=== PATIENT | male | born 1935 | race Caucasian/White ===

== ENCOUNTER 2018-01-27 12:23 | Inpatient (IN) | payer OTHER, MEDICARE ==
[~2018-01-27] VITALS: Ht 182.9 cm; Wt 106.1 kg
[2018-01-27 13:00] LABS: ABSOLUTE BASOPHIL COUNT 0 /CUMM (0.0-0.2); ABSOLUTE EOSINOPHIL COUNT 0.2 /CUMM (0.0-0.7); ABSOLUTE GRANULOCYTE CT 7.6 /CUMM (1.4-6.5); ABSOLUTE LYMPH COUNT 1.4 /CUMM (1.2-3.4); ABSOLUTE MONOCYTE COUNT 0.4 /CUMM (0.10-0.60); BASOPHIL % 0.2 % (0.0-2.0); EOSINOPHIL % 1.6 % (0-5); GRANULOCYTE % 79.1 % (42.2-75.2); HEMATOCRIT 42.4 % (42-52); MEAN CORPUSCULAR HGB 29.1 PG (27.0-31.0); MEAN CORPUSCULAR HGB CONC 33.8 G/DL (33.0-37.0); MEAN PLATELET VOLUME 7.6 FL (7.4-10.4); PLATELET COUNT 109 /CUMM (130-400); RBC DISTRIBUTION WIDTH 15.1 % (11.5-14.5); RED BLOOD CELL CT 4.92 /CUMM (4.70-6.10); WHITE BLOOD CELL COUNT 9.6 /CUMM (4.8-10.8)
--- NOTE | 2018-01-27 13:50 | ED GENERAL ADULT ---
See Addendum History of Present Illness General Chief Complaint: Altered Mental Status Stated Complaint: AMS, WEAKNESS Source: family Exam Limitations: clinical condition Vital Signs & Intake/Output Vital Signs & Intake/Output Vital Signs Date Time Temp Pulse Resp B/P B/P Pulse O2 O2 Flow FiO2 Mean Ox Delivery Rate 01/27 1526 97.6 70 15 147/70 98 Room Air Room Air 01/27 1229 98.8 76 15 101/66 94 Room Air Room Air Allergies Coded Allergies: turkey (Severe, GOUT FLARE UP 01/27/18) sulfamethoxazole (From BACTRIM) (Intermediate, HALLUCINATIONS, RASH, AMS ) trimethoprim (From BACTRIM) (Intermediate, HALLUCINATIONS, RASH, AMS 01/27/18) Reconcile Medications Allopurinol 300 MG TABLET 1 TAB PO DAILY GOUT (Reported) Amoxicillin 500 MG CAPSULE 1 CAP PO TID UTI (Reported) Aspirin (Aspirin*) 81 MG TAB.CHEW 1 TAB PO DAILY HEART HEALTH (Reported) Denosumab (Xgeva) 120 MG/1.7 ML (70 MG/ML) VIAL 1 INJ SC Q30D BONE (Reported) Dicyclomine HCl 20 MG TABLET 1 TAB PO TID PRN GI (Reported) Furosemide 40 MG TABLET 1 TAB PO DAILY WATER RETENTION (Reported) Leuprolide Acetate (Lupron Depot) 3.75 MG SYRINGEKIT 1 INJ INJ CANCER ( Reported) Levetiracetam (Keppra) 500 MG TABLET 1 TAB PO BID SEIZURES (Reported) Lidocaine 5 % ADH..PATCH 1 PAT TOP DAILY PRN PAIN (Reported) Meclizine HCl 25 MG TABLET 1 TAB PO TIDPRN PRN VERTIGO (Reported) Psyllium Husk (Metamucil) 0.4 GRAM CAPSULE 2 CAP PO DAILY GI (Reported) Rosuvastatin Calcium (Crestor) 20 MG TABLET 1 TAB PO 1700 CHOLESTEROL ( Reported) Tamsulosin HCl 0.4 MG CAP.ER.24H 1 CAP PO 1700 PROSTATE (Reported) Tramadol HCl 50 MG TABLET 1 TAB PO BIDP PRN PAIN (Reported) Triage Note: PT TO ED WITH COOLING SYSTEM OPERATOR AND DAUGHTER FOR SIGNIFICANT DECREASE IN MENTAL STATUS AND PHYSICAL MOBILITY X 2 WEEKS. RECENTLY SEEN AT [facility] AND DIAGNOSED WITH NSTEMI AND DISCHARGED LAST WEEK. PT NORMALLY IS ASSIST X 1 BUT NOW MAX ASSIST. PT HAS HX OF STAGE 4 PROSTATE CANCER WITH METS. Triage Nurses Notes Reviewed? yes HPI: Pt is an 82 y/o M PMHx prostate CA w/ stage IV mets, coronary bypass presenting with increasing altered mental status and weakness x 1 week. 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 Caregiver first noticed lethargy and weakness on Thursday 01/18. Pt needed assistance in moving from bed and bringing a fork to his mouth when eating. Pt normally is fully ambulatory and feeds himself. Pt had an episode of chest pain this past Friday for which he was admitted at [facility] from 01/20-01/23 adn diagnosed with an NSTEMI. SInce onset, pt has become increasingly weak. Caregiver noticed that it appears more with the right arm and right leg. Pt has been observed falling asleep at the dinner table and in conversation. Caregiver describes decreased intake of food and water as well as decreased urine output. Pt comlains of suprapubic pain. Pt currently denies any cp, SOB, palpitations. Pt's caregiver denies any vomiting, diarrhea, fevers, cough. Pt is currently being treated for a UTI w/ amoxicillin. Past History Travel History Traveled to [place] past 21 day No Medical History Any Pertinent Medical History? see below for history Neurological: seizure, vertigo EENT: NONE Cardiovascular: hyperlipidemia, NSTEMI, BIPASS X 5 ?CHF Respiratory: NONE Renal: benign prost hyperplasia Musculoskeletal: gout Endocrine: TYPE II DM Cancer(s): PROSTATE WITH METS TO BODY Surgical History Surgical History: non-contributory Psychosocial History What is your primary language Rw[place]an Tobacco Use: Quit >30 days ago Family History Hx Contributory? No Review of Systems Review of Systems Constitutional: Reports: see HPI. Respiratory: Denies: see HPI. Cardiovascular: Denies: see HPI. GI: Denies: see HPI. Genitourinary: Reports: see HPI. Musculoskeletal: Reports: see HPI. Neurological/Psychological: Reports: see HPI. Physical Exam Physical Exam General Appearance: alert, awake, lethargic Head: atraumatic, normal appearance Eyes: Bilateral: normal appearance (Pt unable to perform EOM), PERRL. Neck: normal inspection, supple Respiratory: normal breath sounds, chest non-tender, lungs clear Cardiovascular: regular rate/rhythm, NMRG Peripheral Pulses: 2+ radial (R), 2+ radial (L) Gastrointestinal: normal bowel sounds, soft, Tender to palp of RLQ. Psoas sign, obturator sign negative Neurologic/Psych: Stregth 4/5 of LUE, LLE. Strength 3/5 of RUE, LLE on lacer and tier strength, flexion, extension, Finger to nose positive, pronator drift positive on right, Chronic dementia with acute on chronic confusion Core Measures ACS in differential dx? Yes CVA/TIA Diagnosis: Yes Sepsis Present: No Sepsis Focused Exam Completed? No Progress Differential Diagnoses I considered the following diagnoses in my evaluation of the patient: Renal failure, intracranial hemorrhage, TIA, CVA, other metabolic abnormality Plan of Care: Orders Procedure Date/time Status LACTIC ACID 01/27 1535 Active URINALYSIS 01/27 1235 Active TROPONIN LEVEL 01/27 1235 Complete LACTIC ACID 01/27 1235 Complete COMPREHENSIVE METABOLIC PANEL 01/27 1235 Complete CBC WITHOUT DIFFERENTIAL 01/27 1235 Complete EKG 01/27 1235 Active Current Medications Sig/Law Start time Last Medication Dose Stop Time Status Admin Sodium Chloride 1,000 ML ONCE ONE 01/27 1400 AC 01/27 (Normal Saline 0.9%) 01/27 2039 1437 Laboratory Tests 01/27/18 1250: Anion Gap 11, Estimated GFR > 60, BUN/Creatinine Ratio 21.0, Glucose 139 H, Lactic Acid 1.2, Calcium 8.5, Total Bilirubin 2.0 H, AST 28, ALT 21, Alkaline Phosphatase 94, Troponin I 0.14 *H, Total Protein 6.7, Albumin 3.9, Globulin 2.8 , Albumin/Globulin Ratio 1.4, CBC w Diff NO MAN DIFF REQ, RBC 4.92, MCV 86.0, MCH 29.1, MCHC 33.8, RDW 15.1 H, MPV 7.6, Gran % 79.1 H, Lymphocytes % 14.7 L , Monocytes % 4.4, Eosinophils % 1.6, Basophils % 0.2, Absolute Granulocytes 7.6 H, Absolute Lymphocytes 1.4, Absolute Monocytes 0.4, Absolute Eosinophils 0.2, Absolute Basophils 0 Diagnostic Imaging: Discussed w/RAD: CT Scan (cEREBELLAR BLEED). Initial ED EKG: : Atrial flutter with AV block, right bundle branch block, inferior infarct, old. No priors for comparison in our system but daughter states that right bundle branch block was seen at recent admission to [facility]. Comments: Patient was brought in today for lethargy after a recent hospitalization to [facility] for a non-STEMI read laboratory studies were largely unremarkable except for troponin elevation which was reportedly unchanged from his recent [facility] stay, albeit without comparison laboratory studies. ECG shows right bundle branch block which his daughter/POA states was the case at [facility] as well. Unfortunately , his CT scan shows brain metastasis with a cerebellar bleed. His daughter/POA wishes for him to be admitted here for palliative care consultation. After our discussion she made him DNR. Hospitalized as a full admission. Departure Departure Time of Disposition: 1531 Disposition: STILL A PATIENT Condition: Stable Clinical Impression Primary Impression: Cerebellar hemorrhage, nontraumatic Qualifiers: Laterality: unspecified laterality Qualified Code: I61.4 - Nontraumatic intracerebral hemorrhage in cerebellum Referrals: Monse Cantu MD (PCP/Family) Departure Forms: Customer Survey General Discharge Information Admission Note Spoke With: Sajan Bhakta MD Documentation of Exam: Documentation of any treatments & extenuating circumstances including Concerns Regarding Discharge (functional status, medication knowledge or non-compliance, living conditions, etc.) that warrant an admission rather than observation: Patient has terminal cancer with a new finding of cerebellar hemorrhage from brain metastasis. His cancer is stage IV and with this new development I feel that this is a life-threatening process, and in fact will likely cause his . He requires hospitalization for pain management, palliative care consultation, coordination of outpatient hospice means as his wishes are to at home. Patient will likely be here for more than 24 hours, and he is appropriate for discharge from the ED. Recommended hospitalization. Critical Care Note Critical Care Note Critical Care Time: non-applicable
[2018-01-27] MEDS ORDERED: ALLOPURINOL300 M1 PO (14:06)
[2018-01-27] MEDS ORDERED: ASPIRIN81 M4 PO (14:06)
[2018-01-27] MEDS ORDERED: TAMSULOSIN HCL0.4 M1 PO (14:07)
[2018-01-27] MEDS ORDERED: KEPPRA500 M1 PO (14:07)
[2018-01-27] MEDS ORDERED: CRESTOR20 M2 PO (14:07)
[2018-01-27] MEDS ORDERED: TRAMADOL HCL50 M1 PO (14:08)
[2018-01-27] MEDS ORDERED: LIDOCAINE1 EACH TOP (14:08)
[2018-01-27] MEDS ORDERED: FUROSEMIDE40 M1 PO (14:08)
[2018-01-27] MEDS ORDERED: MECLIZINE HCL25 MG PO (14:09)
[2018-01-27] MEDS ORDERED: DICYCLOMINE HCL20 M1 PO (14:09)
[2018-01-27] MEDS ORDERED: METAMUCIL0.4 GM PO (14:09)
[2018-01-27] MEDS ORDERED: AMOXICILLIN500 M2 PO (14:10)
[2018-01-27] MEDS ORDERED: LUPRON DEPOT3.75 M1 INJ (14:11)
[2018-01-27] MEDS ORDERED: XGEVA120 MG/1.1 SC (14:12)
--- NOTE | 2018-01-27 15:21 | CT SCAN REPORT ---
EXAMINATION: CT HEAD WITHOUT CONTRAST CLINICAL INFORMATION: Right hemiparesis. Acute mental status changes. Presumptive diagnosis of CVA. COMPARISON: None TECHNIQUE: Contiguous axial imaging was performed from the skull base to vertex without intravenous administration of contrast. DLP: 629.05 mGy-cm FINDINGS: There is no evidence of territorial infarction. There is a 1.3 x 1.1 cm focus of hyperdensity seen in the right cerebellum with surrounding vasogenic edema consistent with a focal cerebellar hemorrhage. There is a small focus of hyperdensity adjacent to the frontal horn of the right lateral ventricle, possibly another focus of hemorrhage. No abnormal mass effect or midline shift is seen. Grier to white matter differentiation is well preserved. No extra-axial fluid collections are identified. The ventricles and sulci are enlarged, consistent with involutional changes. Mild periventricular deep white matter low-attenuation is seen, consistent with mild ischemic small vessel disease. Atherosclerotic calcifications of the vertebrobasilar arteries is seen. The patient is status post bilateral lens extractions. The osseous structures and soft tissues are normal. The mastoid air cells and visualized portions of the paranasal sinuses are well aerated. IMPRESSION: 1. Findings are consistent with a focal right cerebellar hemorrhage with associated mild vasogenic edema. Additional possible smaller focus of hemorrhage is seen adjacent to the frontal horn of the right lateral ventricle. Would recommend additional evaluation with MRI scan with and without contrast to exclude an underlying mass. 2. No significant mass effect or midline shift is seen. 3. Involutional changes with mild periventricular ischemic small vessel disease. This critical result was discussed with Dr. Anoop Bower 01/27/2018, 3:10 PM and it was ascertained that the content and urgency of this report was understood at the time of direct communication.
--- NOTE | 2018-01-27 17:40 | History & Physical ---
Ras Elisei 01/27/18 1738: General Information and HPI MD Statement: I have seen and personally examined JULISSA OLVERA and documented this H&P. The patient is a 82 year old M who presented with a patient stated chief complaint of altered mental status Source of Information: daughter History of Present Illness: Pt is an 82 y/o M PMHx prostate CA w/ stage IV mets, coronary bypass,gout, hyperlipidemia, vertigo, Type II DM was brought to the ED by his daughter for altered mental status. The daughter is the POA and categorically states that she does not want the patient to know about his current medical condition. The patient was apparently admitted to the [facility] with the complaint of chest pain last . He developed right extremity weakness on Friday. According to the daughter, he was able to walk to the bathroom on Friday. He was not able to use his fork to eat his food but was able to do so yesterday morning. He has been falling asleep in mid sentences and wants to know why he has been feeling that drowsy. The daughter states that the patient has improved dramatically since he was given fluids in the ER. He has apparently been up and talking and watching TV and has been more alert and oriented. Allergies/Medications Allergies: Coded Allergies: turkey (Severe, GOUT FLARE UP 01/27/18) sulfamethoxazole (From BACTRIM) (Intermediate, HALLUCINATIONS, RASH, AMS ) trimethoprim (From BACTRIM) (Intermediate, HALLUCINATIONS, RASH, AMS 01/27/18) Home Med list Allopurinol 300 MG TABLET 1 TAB PO DAILY GOUT (Reported) Amoxicillin 500 MG CAPSULE 1 CAP PO TID UTI (Reported) Aspirin (Aspirin*) 81 MG TAB.CHEW 1 TAB PO DAILY HEART HEALTH (Reported) Denosumab (Xgeva) 120 MG/1.7 ML (70 MG/ML) VIAL 1 INJ SC Q30D BONE (Reported) Dicyclomine HCl 20 MG TABLET 1 TAB PO TID PRN GI (Reported) Furosemide 40 MG TABLET 1 TAB PO DAILY WATER RETENTION (Reported) Leuprolide Acetate (Lupron Depot) 3.75 MG SYRINGEKIT 1 INJ INJ CANCER ( Reported) Levetiracetam (Keppra) 500 MG TABLET 1 TAB PO BID SEIZURES (Reported) Lidocaine 5 % ADH..PATCH 1 PAT TOP DAILY PRN PAIN (Reported) Meclizine HCl 25 MG TABLET 1 TAB PO TIDPRN PRN VERTIGO (Reported) Psyllium Husk (Metamucil) 0.4 GRAM CAPSULE 2 CAP PO DAILY GI (Reported) Rosuvastatin Calcium (Crestor) 20 MG TABLET 1 TAB PO 1700 CHOLESTEROL ( Reported) Tamsulosin HCl 0.4 MG CAP.ER.24H 1 CAP PO 1700 PROSTATE (Reported) Tramadol HCl 50 MG TABLET 1 TAB PO BIDP PRN PAIN (Reported) Past History Travel History Traveled to [place] past 21 day No Medical History Neurological: seizure, vertigo EENT: NONE Cardiovascular: hyperlipidemia, NSTEMI, BIPASS X 5 ?CHF Respiratory: NONE Renal: benign prost hyperplasia Musculoskeletal: gout Endocrine: TYPE II DM Cancer(s): PROSTATE WITH METS TO BODY Surgical History Surgical History: non-contributory Review of Systems Review of Systems Constitutional: Reports: malaise, weakness. Denies: chills, diaphoresis, fever. EENTM: Reports: hearing changes. Denies: blurred vision, double vision. Cardiovascular: Reports: chest pain, peripheral edema. Denies: palpitations. Respiratory: Reports: short of breath. Denies: cough, hemoptysis, sputum production. GI: Denies: abdominal pain, bloating, constipation, diarrhea. Genitourinary: Reports: frequency, hesitation. Musculoskeletal: Reports: back pain, gout, muscle pain. Denies: joint pain. Neurological/Psychological: Denies: anxiety, depressed, dementia, emotional problems. Hematologic/Endocrine: Denies: bleeding, polyuria. Exam & Diagnostic Data Last 24 Hrs of Vital Signs/I&O Vital Signs Date Time Temp Pulse Resp B/P B/P Pulse O2 O2 Flow FiO2 Mean Ox Delivery Rate 01/27 1804 97.4 70 19 132/63 97 Room Air 01/27 1526 97.6 70 15 147/70 98 Room Air Room Air 01/27 1229 98.8 76 15 101/66 94 Room Air Room Air Intake & Output 01/27 1600 01/27 0800 01/27 0000 Intake Total 2000 Output Total 350 Balance 1650 Intake, IV 2000 Output, Urine 350 Physical Exam General Appearance Alert, Oriented X3, Cooperative, No Acute Distress Skin Temp/Moisture Exam: Warm/Dry HEENT Atraumatic, PERRLA, EOMI, pupils bilaterally reactive to light Neck Supple Cardiovascular Regular Rate, Normal S1, Normal S2 Lungs Clear to Auscultation Abdomen Normal Bowel Sounds, Soft, No Tenderness Neurological Strength at 5/5 X4 Ext, Normal Tone, Sensation Intact, Cranial Nerves 3-12 NL Extremities No Edema, Normal Pulses Assessment/Plan Assessment: This is an 82 yo gentleman with PMH of prostate CA w/ stage IV mets, coronary bypass,gout, hyperlipidemia, vertigo, Type II DM was brought to the ED by his daughter with complaint of lethargy and altered mental status. He was found to have a focal right cerebellar bleed with vasogenic edema. On examination, he is alert and orientedx3. His pupils are bilaterally equally reactive to light. Strength in all four extremities 5/5 (even though he had decreased strength in his right extremities on admission), sensation intact, cranial nerves grossly intact. The family wants comfort measures for the patient at this time. They are willing to opt for hospice care if he stabalises Vital signs: Stable Labs: Platelets: 109, HCO3:21, Total bilirubin:2, Troponin: 0.14 Problems: 1. Acute focal right cerebellar bleed 2. Recent history of NSTEMI 3. Thrombocytopenia 4. Hyperbilirubenemia 5. History of Prostate Cancer with mets Plan: -We will admit the patient to the Gen Med service -Comfort care -Continuous IVF 100cc/hr -Oxygen supplementation if needed -Hold Aspirin -Palliative care consult in the AM DVT prophylaxis: ALPS only Code status: Comfort measures 1. Findings are consistent with a focal right cerebellar hemorrhage with associated mild vasogenic edema. Additional possible smaller focus of hemorrhage is seen adjacent to the frontal horn of the right lateral ventricle. Would recommend additional evaluation with MRI scan with and without contrast to exclude an underlying mass. 2. No significant mass effect or midline shift is seen. 3. Involutional changes with mild periventricular ischemic small vessel disease. As Ranked By This Provider Problem List: 1. Cerebellar hemorrhage, nontraumatic Qualifiers Laterality: unspecified laterality Qualified Code: I61.4 - Nontraumatic intracerebral hemorrhage in cerebellum 2. History of non-ST elevation myocardial infarction (NSTEMI) 3. History of prostate cancer Core Measures/Misc (02/09) Acute Coronary Syndrome ACS Diagnosis: No Congestive Heart Failure Congestive Heart Failure Diagnosis No Cerebrovascular Accident CVA/TIA Diagnosis: Yes NIH Stroke Scale: Total 2 Date Last Known Well: 01/22/18 Symptom Start Date: 01/23/18 tPA given? No Reason tPA not ordered Medical Contraindication Swallow Evaluation Not Done Current/Past Hx AFib/AFlutter Yes No Antithrombotic d/t Hemorrhagic CVA No Anticoagulant d/t Medical Contraindication VTE (View Protocol) VTE Risk Factors Age>40 No Mechanical VTE Prophylaxis d/t N/A MechProphylax Ordered No VTE Pharm Prophylaxis d/t Bleeding (Active) Sepsis (View protocol) Sepsis Present: No If YES complete Sepsis Event Note If YES complete Sepsis Event Note Shayna Jack 01/27/18 194: Core Measures/Misc (02/09) Sepsis (View protocol) If YES complete Sepsis Event Note If YES complete Sepsis Event Note Resident Review Statement Resident Statement: examined this patient, discussed with collector of internal revenue, agreed with collector of internal revenue, discussed with family, reviewed EMR data (avail), discussed with nursing , discussed with case mgmt, reviewed images, amended to note Other Findings: Mr. Olvera is a 82yo M with PMH of metastatic prostate CA stage 4 mets, CAD s/p Bypass, presented to ER w/ AMS/weakness x 1 week. Pt was diagnosed with an NSTEMI at [facility] 01/20-, and since, per patient's home health aid, pt has been having increasing right sided weakness with difficulty ambulating since 01/23 and has not been able to feed himself [employer] CAND[employer]. The aid also noticed significant change while he was getting a "blood thinner" at [facility]. Pt complained only of "hip pain ". The Aid stated that patient crurrently has a UTI on Amoxicillin. He has an indwelling cabrera catherter and gets frequent UTIs. Pt currently denies any cp, SOB, palpitations. Pt's caregiver denies any vomiting, diarrhea, fevers, cough. On admission, Vitals: stable afebrile, BP 147/70, 98% RA Physical exam as above. -CBC: PLT 109 -CMP: unremarkable, except Trop 0.14 -Head CT: 1. Findings are consistent with a focal right cerebellar hemorrhage with associated mild vasogenic edema. Additional possible smaller focus of hemorrhage is seen adjacent to the frontal horn of the right lateral ventricle. Would recommend additional evaluation with MRI scan with and without contrast to exclude an underlying mass. 2. No significant mass effect or midline shift is seen. 3. Involutional changes with mild periventricular ischemic small vessel disease. -EKG: Atrial flutter with AV block, right bundle branch block, inferior infarct, old. No priors for comparison in our system. -Last Echo: None in our system -Interventions in ER: IVF x 1, Tylenol x 1 Problem list/Assessment/Hospital Course: #New onset right cerebellar hemorrhage #Thrombocytopenia, likely 2/2 recent blood thiner use?/malignancy? #PMH of metastatic prostate CA stage 4 mets, CAD s/p Bypass - Admit to General medicine - Vitals per protocol, monitor I&O per protocol. - Supplemental O2 if needed - COntinuous IVF 100cc/hr - Continue all home meds, except HOLDING ASA - Continue home meds of Amoxicillin for UTI - Pending Palliative care/Hospice consult in the AM. - Patient's family member would like to know prognosis timing for further plan of care - Pain per pathway DVT prophylaxis Pharm PPX + ALPS Heart Healthy Diet IV Access: Peripheral IV Comfort Measure [facility]: Core Measures/Misc (02/09) Sepsis (View protocol) If YES complete Sepsis Event Note If YES complete Sepsis Event Note Attending MD Review Statement Attending Statement Attending MD Statement: examined this patient, discuss w/resident/PA/LIFESTYLE CONSULTANT, agreed w/resident/PA/LIFESTYLE CONSULTANT, reviewed EMR data (avail) Attending Assessment/Plan: 82M PMH prostate CA w/ stage IV mets, coronary bypass,gout, hyperlipidemia, vertigo, Type II DM presenting with mild confusion for the past two days, found to have small right cerebellar hemorrhage due to metastasis from prostate cancer. Patient feels well and has no complaints. He is cooperative, pleasant, and listening to music. Family is at bedside, understands situation, wishes for comfort measures for patient. Seen by neurosurgery and no acute intervention at this time, and family does not wish for invasive treatment. Will admit to medicine, comfort measures, hospice and palliative care consults.
--- NOTE | 2018-01-27 19:14 | Cons- Neurosurgical ---
General Information and HPI Consulting Request Date of Consult: 01/27/18 Requested By: Dr. Bower Reason for Consult: R cerebellar hemorage Source of Information: family Exam Limitations: not alert/orientated, clinical condition History of Present Illness: This is an 82yo M with hx of metistatic prostate CA, coronary bypass presenting with increasing altered mental status and weakness x 1 week. Pt was diagnosed with an NSTEMI while she was at [facility] . Pt's full charge bookkeeper home health aid gives history that pt has been having increasing right sided weakness with difficulty ambulating and as of today has not been able to feed himself. Pt normally is fully ambulatory and feeds himself. SInce NSTEMI, pt has become increasingly weak, aid thinks that she noticed a significant change while he was getting a "blood thinner" at [facility]. Caregiver noticed that it appears more with the right side. Caregiver describes decreased intake of food and water as well as decreased urine output of about 500cc dark urine over past 24h. Pt complains only of "hip pain". Aid states that he crurrently has a UTI for which he is on Amoxicillin. He has an indwelling cabrera catherter and gets frequent UTIs. Pt currently denies any cp, SOB, palpitations. Pt's caregiver denies any vomiting, diarrhea, fevers, cough. Allergies/Medications Allergies: Coded Allergies: turkey (Severe, GOUT FLARE UP 01/27/18) sulfamethoxazole (From BACTRIM) (Intermediate, HALLUCINATIONS, RASH, AMS ) trimethoprim (From BACTRIM) (Intermediate, HALLUCINATIONS, RASH, AMS 01/27/18) Home Med List: Allopurinol 300 MG TABLET 1 TAB PO DAILY GOUT (Reported) Amoxicillin 500 MG CAPSULE 1 CAP PO TID UTI (Reported) Aspirin (Aspirin*) 81 MG TAB.CHEW 1 TAB PO DAILY HEART HEALTH (Reported) Denosumab (Xgeva) 120 MG/1.7 ML (70 MG/ML) VIAL 1 INJ SC Q30D BONE (Reported) Dicyclomine HCl 20 MG TABLET 1 TAB PO TID PRN GI (Reported) Furosemide 40 MG TABLET 1 TAB PO DAILY WATER RETENTION (Reported) Leuprolide Acetate (Lupron Depot) 3.75 MG SYRINGEKIT 1 INJ INJ CANCER ( Reported) Levetiracetam (Keppra) 500 MG TABLET 1 TAB PO BID SEIZURES (Reported) Lidocaine 5 % ADH..PATCH 1 PAT TOP DAILY PRN PAIN (Reported) Meclizine HCl 25 MG TABLET 1 TAB PO TIDPRN PRN VERTIGO (Reported) Psyllium Husk (Metamucil) 0.4 GRAM CAPSULE 2 CAP PO DAILY GI (Reported) Rosuvastatin Calcium (Crestor) 20 MG TABLET 1 TAB PO 1700 CHOLESTEROL ( Reported) Tamsulosin HCl 0.4 MG CAP.ER.24H 1 CAP PO 1700 PROSTATE (Reported) Tramadol HCl 50 MG TABLET 1 TAB PO BIDP PRN PAIN (Reported) Past History Medical History Neurological: seizure, vertigo EENT: NONE Cardiovascular: hyperlipidemia, NSTEMI, BIPASS X 5 ?CHF Respiratory: NONE Renal: benign prost hyperplasia Musculoskeletal: gout Endocrine: TYPE II DM Cancer(s): PROSTATE WITH METS TO BODY Surgical History Pertinent Surgical History: non-contributory Review of Systems Review of Systems: as per HPI Exam & Diagnostic Data Vital Signs and I&O Vital Signs Date Time Temp Pulse Resp B/P B/P Pulse O2 O2 Flow FiO2 Mean Ox Delivery Rate 01/27 1804 97.4 70 19 132/63 97 Room Air 01/27 1526 97.6 70 15 147/70 98 Room Air Room Air 01/27 1229 98.8 76 15 101/66 94 Room Air Room Air Intake & Output 01/27 1600 01/27 0801/27 0000 01/26 1600 01/26 0800 01/26 0000 Intake Total 2000 Output Total 350 Balance 1650 Intake, IV 2000 Output, Urine 350 Physical Exam: gen- NAD eyes- pt unable to perform EOM, PERRL resp-clear, non-labored cardiac- RRR abd- +bowel sounds, soft, tender in suprapubic area ext- strength decreased on right upper and lower extremity, pronator drift positive on the right. distal pulses 2+. Last 24 Hours of Labs: Laboratory Tests 01/27 01/27 01/27 1535 1250 1235 Chemistry Sodium (137 - 145 mmol/L) 137 Potassium (3.5 - 5.1 mmol/L) 3.8 Chloride (98 - 107 mmol/L) 105 Carbon Dioxide (22 - 30 mmol/L) 21 L Anion Gap (5 - 16) 11 BUN (9 - 20 mg/dL) 21 H Creatinine (0.7 - 1.2 mg/dL) 1.0 Estimated GFR (>60 ml/min) > 60 BUN/Creatinine Ratio (7 - 25 %) 21.0 Glucose (65 - 99 mg/dL) 139 H Lactic Acid (0.7 - 2.1 mmol/L) Cancelled 1.2 Calcium (8.4 - 10.2 mg/dL) 8.5 Total Bilirubin (0.2 - 1.3 mg/dL) 2.0 H AST (17 - 59 U/L) 28 ALT (21 - 72 U/L) 21 Alkaline Phosphatase (< 127 U/L) 94 Troponin I (<0.11 ng/ml) 0.14 *H Total Protein (6.3 - 8.2 g/dL) 6.7 Albumin (3.5 - 5.0 g/dL) 3.9 Globulin (1.9 - 4.2 gm/dL) 2.8 Albumin/Globulin Ratio (1.1 - 2.2 %) 1.4 Hematology CBC w Diff NO MAN DIFF REQ WBC (4.8 - 10.8 /CUMM) 9.6 RBC (4.70 - 6.10 /CUMM) 4.92 Hgb (14.0 - 18.0 G/DL) 14.3 Hct (42 - 52 %) 42.4 MCV (80.0 - 94.0 FL) 86.0 MCH (27.0 - 31.0 PG) 29.1 MCHC (33.0 - 37.0 G/DL) 33.8 RDW (11.5 - 14.5 %) 15.1 H Plt Count (130 - 400 /CUMM) 109 L MPV (7.4 - 10.4 FL) 7.6 Gran % (42.2 - 75.2 %) 79.1 H Lymphocytes % (20.5 - 51.1 %) 14.7 L Monocytes % (1.7 - 9.3 %) 4.4 Eosinophils % (0 - 5 %) 1.6 Basophils % (0.0 - 2.0 %) 0.2 Absolute Granulocytes (1.4 - 6.5 /CUMM) 7.6 H Absolute Lymphocytes (1.2 - 3.4 /CUMM) 1.4 Absolute Monocytes (0.10 - 0.60 /CUMM) 0.4 Absolute Eosinophils (0.0 - 0.7 /CUMM) 0.2 Absolute Basophils (0.0 - 0.2 /CUMM) 0 Urines Urine Color Cancelled Urine Clarity Cancelled Urine pH Cancelled Ur Specific [place] Cancelled Urine Protein Cancelled Urine Ketones Cancelled Urine Nitrite Cancelled Urine Bilirubin Cancelled Urine Urobilinogen Cancelled Ur Leukocyte Esterase Cancelled Ur Microscopic Cancelled Urine Hemoglobin Cancelled Urine Glucose Cancelled Imaging Results: EXAMINATION: CT HEAD WITHOUT CONTRAST CLINICAL INFORMATION: Right hemiparesis. Acute mental status changes. Presumptive diagnosis of CVA. COMPARISON: None TECHNIQUE: Contiguous axial imaging was performed from the skull base to vertex without intravenous administration of contrast. DLP: 629.05 mGy-cm FINDINGS: There is no evidence of territorial infarction. There is a 1.3 x 1.1 cm focus of hyperdensity seen in the right cerebellum with surrounding vasogenic edema consistent with a focal cerebellar hemorrhage. There is a small focus of hyperdensity adjacent to the frontal horn of the right lateral ventricle, possibly another focus of hemorrhage. No abnormal mass effect or midline shift is seen. Grier to white matter differentiation is well preserved. No extra-axial fluid collections are identified. The ventricles and sulci are enlarged, consistent with involutional changes. Mild periventricular deep white matter low-attenuation is seen, consistent with mild ischemic small vessel disease. Atherosclerotic calcifications of the vertebrobasilar arteries is seen. The patient is status post bilateral lens extractions. The osseous structures and soft tissues are normal. The mastoid air cells and visualized portions of the paranasal sinuses are well aerated. IMPRESSION: 1. Findings are consistent with a focal right cerebellar hemorrhage with associated mild vasogenic edema. Additional possible smaller focus of hemorrhage is seen adjacent to the frontal horn of the right lateral ventricle. Would recommend additional evaluation with MRI scan with and without contrast to exclude an underlying mass. 2. No significant mass effect or midline shift is seen. 3. Involutional changes with mild periventricular ischemic small vessel disease. This critical result was discussed with Dr. Anoop Bower 01/27/2018, 3:10 PM and it was ascertained that the content and urgency of this report was understood at the time of direct communication. DICTATED BY: Jackie Sewell MD DATE/TIME DICTATED:01/27/181499 WEARING APPAREL SHAKER:SARINA DATE/TIME TRANSCRIBED:01/27/181499 Assessment/Plan Assessment/Plan 82yo M with hx met prostate CA, recent NSTEMI, now with small Right cerebellar hemorrhage. 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 No surgical intervention is needed at this time. Rec neurology consult- per radiologist:Would recommend additional evaluation with MRI scan with and without contrast to exclude an underlying mass. Dr. Donald is aware and agrees with the agove plan Consult Acknowledgment - Thank you for your consult request.
[2018-01-27 23:02] VITALS: BP 124/64
[2018-01-28 06:51] VITALS: BP 114/64
--- NOTE | 2018-01-28 08:50 | PN- Housestaff ---
See Addendum Subjective Follow-up For: Right cerebellar infrarct Subjective: We had extensive discussion with the daughter of the patient. She does not want to let the patient know about his current medical conditions. She refuses all kinds of intervention including an MRI. She does want accu checks once daily for the patient because she does not want his sugars to "bottom out". She states she wants to take the patient home for home hospice care. Review of Systems Constitutional: Reports: see HPI. Objective Last 24 Hrs of Vital Signs/I&O Vital Signs Date Time Temp Pulse Resp B/P B/P Pulse O2 O2 Flow FiO2 Mean Ox Delivery Rate 01/28 1410 97.8 70 20 124/60 94 Room Air 01/28 0800 Room Air 01/28 0651 96.7 70 20 114/64 96 Room Air 01/28 0000 95 Room Air 01/27 2302 98.5 71 22 124/64 95 Room Air 01/27 1804 97.4 70 19 132/63 97 Room Air 01/27 1526 97.6 70 15 147/70 98 Room Air Room Air Intake & Output 01/28 1600 / 0800 09/05 0000 Intake Total 540 800 760 Output Total 550 300 850 Balance -10 500 -90 Intake, IV 300 800 400 Intake, Oral 240 360 Number 1 Bowel Movements Output, Urine 550 300 850 Patient 234 lb 234 lb Weight Weight Bed scale Bed scale Measurement Method Physical Exam General Appearance: Alert, Oriented X3, Cooperative, No Acute Distress Skin: No Rashes Sepsis Skin Exam (color): Normal for Ethnicity Neck: Supple Cardiovascular: Regular Rate, Normal S1, Normal S2 Lungs: Clear to Auscultation Abdomen: Normal Bowel Sounds, Soft Neurological: decreased strength in Right upper and lower limbs. cerebellar dysfunction with postive finger nose test Assessment/Plan Assessment: This is an 82 yo gentleman with PMH of prostate CA w/ stage IV mets, coronary bypass,gout, hyperlipidemia, vertigo, Type II DM was brought to the ED by his daughter with complaint of lethargy and altered mental status. He was found to have a focal right cerebellar bleed with vasogenic edema. On examination, he is alert and orientedx3. His pupils are bilaterally equally reactive to light.Strength decreased in the right upper and lower limbs. Cerbellar dysfunction with positive finger nose test Vital signs: Stable Labs: Platelets: 109, HCO3:21, Total bilirubin:2, Troponin: 0.14 The family refuses any more labs Problems: 1. Acute focal right cerebellar bleed 2. Recent history of NSTEMI 3. Thrombocytopenia 4. Hyperbilirubenemia 5. History of Prostate Cancer with mets Plan: -The patient is Comfort care at present -Continuous IVF 100cc/hr -Oxygen supplementation if needed -Hold Aspirin -Hospice consult for home hospice in the AM tomorrow DVT prophylaxis: ALPS only Code status: Comfort measures Problem List: 1. History of non-ST elevation myocardial infarction (NSTEMI) 2. History of prostate cancer 3. Cerebellar hemorrhage, nontraumatic Pain Ratin Pain Location: back Pain Goal: Remain pain free Pain Plan: pathway Tomorrow's Labs & Rationales: none
[2018-01-28 14:10] VITALS: BP 124/60
[2018-01-28 22:32] VITALS: BP 126/60
[2018-01-29 06:21] VITALS: BP 124/60
--- NOTE | 2018-01-29 07:26 | PN- Housestaff ---
Randall Christensen 01/29/18 0726: Subjective Follow-up For: Right cerebellar infrarct Subjective: Patient was examined at the bedside today. Was lying down and said that he was in a lot of pain. No other complaints overnight. No fever, shortness of breath , chest pain, diarrhea, nausea, vomiting. Complains of backache. Pain management was discussed with the patient. Review of Systems Constitutional: Reports: see HPI. Objective Last 24 Hrs of Vital Signs/I&O Vital Signs Date Time Temp Pulse Resp B/P B/P Pulse O2 O2 Flow FiO2 Mean Ox Delivery Rate 01/29 1505 97.6 70 22 124/60 01/29 0621 97.6 70 22 124/60 96 01/29 0000 Room Air 01/28 2232 98.5 73 20 126/60 96 Room Air 01/28 1705 70 124/60 Intake & Output 01/29 1600 01/29 0800 01/29 0000 Intake Total 120 480 120 Output Total 300 301 700 Balance -180 179 -580 Intake, Oral 120 480 120 Number 1 3 Bowel Movements Output, Stool 1 Output, Urine 300 300 700 Patient 234 lb Weight Physical Exam General Appearance: Alert, Oriented X3, Cooperative, Mild Distress Cardiovascular: Regular Rate, No Murmurs Lungs: Clear to Auscultation, Normal Air Movement Abdomen: Normal Bowel Sounds, Soft, No Tenderness, No Hepatospenomegaly, No Masses Neurological: Normal Speech, Strength at 5/5 X4 Ext, Normal Tone, Sensation Intact Extremities: No Clubbing, No Cyanosis, No Edema, Normal Pulses, No Tenderness/ Swelling Assessment/Plan Assessment: This is an 82 yo gentleman with PMH of prostate CA w/ stage IV mets, coronary bypass,gout, hyperlipidemia, vertigo, Type II DM was brought to the ED by his daughter with complaint of lethargy and altered mental status. He was found to have a focal right cerebellar bleed with vasogenic edema. On examination, he is alert and orientedx3. His pupils are bilaterally equally reactive to light.Strength decreased in the right upper and lower limbs. Cerbellar dysfunction with positive finger nose test. patient is in alot of pain today. Problems: 1. Acute focal right cerebellar bleed 2. Recent history of NSTEMI 3. Thrombocytopenia 4. Hyperbilirubenemia 5. History of Prostate Cancer with mets Plan: -The patient is Comfort care at present -Continuous IVF 100cc/hr -started on IV morphine 2mg for pain management. -Oxygen supplementation if needed. -Hold Aspirin -patient is going on Hospice care at home. today Problem List: 1. History of prostate cancer Pain Ratin Pain Location: back Pain Goal: Remain pain free Pain Plan: morphine Tomorrow's Labs & Rationales: none Victor M Santillan 01/29/18 1541: Attending MD Review Statement Attending Statement Attending MD Statement: examined this patient, discuss w/resident/PA/CALL CENTER SUPPORT REPRESENTATIVE, agreed w/resident/PA/CALL CENTER SUPPORT REPRESENTATIVE, reviewed EMR data (avail), discussed with nursing, discussed with case mgmt Attending Assessment/Plan: pt will be dced home on home hospice this afternoon. d/w case management and hospice the care plan. see dc summary for more details.
[2018-01-29] MEDS ORDERED: ATIVAN2 MG/1 ML IM (10:00)
[2018-01-29] MEDS ORDERED: MORPHINE S10 MG/5 M2 PO (10:00)
[2018-01-29] MEDS ORDERED: MS CONTIN15 M3 PO ×2 (10:00→10:32)
[2018-01-29] MEDS ORDERED: SCOPOLAMINE1 EAC1 TOP (10:00)
--- NOTE | 2018-01-29 10:01 | Patient Discharge Instructions ---
Discharge Instructions General Discharge Information Special Instructions: - Please continue your care at home with hospice. Diet Continue normal diet: Yes Activity Full Activity/No Limits: No Acute Coronary Syndrome Inclusion Criteria At DC or during hospital stay patient has or had the following: ACS DIAGNOSIS No Discharge Core Measures Meds if any: Prescribed or Continued at Discharge Meds if any: NOT Prescribed or Continued at Discharge Congestive Heart Failure Inclusion Criteria At DC or during hospital stay patient has or had the following: CHF DIAGNOSIS No Discharge Core Measures Meds if any: Prescribed or Continued at Discharge Meds if any: NOT Prescribed or Continued at Discharge Cerebrovascular accident Inclusion Criteria At DC or during hospital stay patient has or had the following: CVA/TIA Diagnosis Yes Discharge Core Measures Meds if any: Prescribed or Continued at Discharge Antithrombotic No Statin (required if LDL =>70) Yes Anticoagulant No Meds if any: NOT Prescribed or Continued at Discharge No Antithrombotic d/t Medical Contraindication No Anticoagulant d/t Medical Contraindication Venous thromboembolism Inclusion Criteria VTE Diagnosis No VTE Type NONE VTE Confirmed by (Test) NONE Discharge Core Measures - Per Current guidelines, there needs to be overlap - treatment for the first 5 days of Warfarin therapy. - If discharged on Warfarin prior to 5 days of - overlap therapy, the patient will need to be - assessed for post discharge needs including - *Post discharge parental anticoagulation - *Warfarin and/or parental anticoagulation education - *Follow up date to check INR post discharge At least 5 days overlap therapy as Inpatient No Meds if any: Prescribed or Continued at Discharge Note: Overlap Therapy is Warfarin and Anticoagulant Meds if any: NOT Prescribed or Continued at Discharge
[2018-01-29] MEDS ORDERED: SENOKOT-S TABL1 EACH PO (10:33)
[2018-01-29 15:05] VITALS: BP 124/60
--- NOTE | 2018-01-30 08:00 | Discharge Summary ---
Visit Information Visit Dates Admission Date: 01/27/18 Discharge Date: 01/29/18 Hospital Course Course Attending Physician: Victor M Santillan MD Primary Care Physician: Alondra ARAUZ,[place] Hospital Course: This is an 82 yo gentleman with PMH of prostate CA w/ stage IV mets, coronary bypass,gout, hyperlipidemia, vertigo, Type II DM was brought to the ED by his daughter with complaint of lethargy and altered mental status. He was found to have a focal right cerebellar bleed with vasogenic edema. On examination, he was alert and orientedx3. His pupils were bilaterally equally reactive to light.Strength was decreased in the right upper and lower limbs. Cerbellar dysfunction with positive finger nose test Vital signs: Stable Labs: Platelets: 109, HCO3:21, Total bilirubin:2, Troponin: 0.14 The family refused any more labs HEAD CT IMPRESSION: 1. Findings are consistent with a focal right cerebellar hemorrhage with associated mild vasogenic edema. Additional possible smaller focus of hemorrhage is seen adjacent to the frontal horn of the right lateral ventricle. Would recommend additional evaluation with MRI scan with and without contrast to exclude an underlying mass. 2. No significant mass effect or midline shift is seen. 3. Involutional changes with mild periventricular ischemic small vessel disease. Problems: 1. Acute focal right cerebellar bleed 2. Recent history of NSTEMI 3. Thrombocytopenia 4. Hyperbilirubenemia 5. History of Prostate Cancer with mets The patient was lethargic when he came in. He was started on 100cc iv fluids. He became more alert and oriented during the course of his hospital stay. Aspirin was held. Extensive discussion were held with the family. The daughter, who holds the power of trust and estates attorney did not want the patient to know anything about his medical condition. They refused any further measures including lab tests for the patient and opted for comfort measures. The patient was discharged to home hospice care on the request of the family. DVT prophylaxis: ALPS only Code status: Comfort measures Allergies: Coded Allergies: turkey (Severe, GOUT FLARE UP 01/27/18) sulfamethoxazole (From BACTRIM) (Intermediate, HALLUCINATIONS, RASH, AMS ) trimethoprim (From BACTRIM) (Intermediate, HALLUCINATIONS, RASH, AMS 01/27/18) Disposition Summary Disposition Principal Diagnosis: Right Cerebellar bleed Additional Diagnosis: Prostate cancer with bone metastases Discharge Disposition: hospice - home Discharge Instructions General Discharge Information Code Status: Comfort Care Only Patient's Diet: Regular diet Patient's Activity: As tolerated Follow-Up Instructions/Appts: The patient was discharged to home hospice care on the request of the family. Medications at Discharge Discharge Medications: Stop taking the following medications: Aspirin (Aspirin*) 81 MG TAB.CHEW ORAL DAILY Levetiracetam (Keppra) 500 MG TABLET ORAL TWICE DAILY Rosuvastatin Calcium (Crestor) 20 MG TABLET ORAL 5 PM Tramadol HCl (Tramadol HCl) 50 MG TABLET ORAL 2 x Daily as needed as needed for PAIN Amoxicillin (Amoxicillin) 500 MG CAPSULE ORAL THREE TIMES DAILY Leuprolide Acetate (Lupron Depot) 3.75 MG SYRINGEKIT INJECTABLE Denosumab (Xgeva) 120 MG/1.7 ML (70 MG/ML) VIAL SC ONCE A MONTH Continue taking these medications: Allopurinol (Allopurinol) 300 MG TABLET 1 Tablet ORAL DAILY Comments: LAST TAKEN: 01/29/18 @ 9 AM Tamsulosin HCl (Tamsulosin HCl) 0.4 MG CAP.ER.24H 1 Capsule ORAL 5 PM Comments: LAST TAKEN: 01/29/18 @ 9 AM Furosemide (Furosemide) 40 MG TABLET 1 Tablet ORAL DAILY Lidocaine (Lidocaine) 5 % ADH..PATCH 1 Patch On the skin DAILY as needed for PAIN Comments: NOT GIVEN IN HOSPITAL Psyllium Husk (Metamucil) 0.4 GRAM CAPSULE 2 Capsule ORAL DAILY Comments: NOT GIVEN IN HOSPITAL Meclizine HCl (Meclizine HCl) 25 MG TABLET 1 Tablet ORAL THREE TIMES A DAY NEEDED as needed for VERTIGO Comments: NOT TAKEN IN HOSPITAL Dicyclomine HCl (Dicyclomine HCl) 20 MG TABLET 1 Tablet ORAL THREE TIMES DAILY as needed for GI Comments: LAST TAKEN: 01/29/18 @ 9 AM Start taking the following new medications: Morphine Sulfate (Ms Contin) 15 MG TABLET.ER 1 Tablet ORAL EVERY 12 HOURS Qty = 30 No Refills Scopolamine (Scopolamine) 1 MG/3 DAY PATCH.TD.3 1 Patch On the skin DAILY as needed for Dizziness/N/V Qty = 30 No Refills Sennosides/Docusate Sodium (Senokot-S Tablet) 8.6 MG-50 MG TABLET 1 Tablet ORAL TWICE DAILY Qty = 30 No Refills Copies To: Alondra ARAUZ,[place]
== END 2018-01-29 15:19 | disposition hospice, home (50) | DRG 64 ==
LOC: ERH 12:23 → 2NA 16:35 → ERHI 16:35 → ENRESERV 18:02 → ENTRNSPT 19:03 → EDTRNSPTSTS 19:12 → 2NA 19:22 → CMPTRNSPT 19:44 → 2NA 01-28 08:07
PROVIDERS: Physician Assistant Medical
DX: I61.4 Nontraumatic intracerebral hemorrhage in cerebellum (principal); G93.6 Cerebral edema; I21.4 Non-ST elevation (NSTEMI) myocardial infarction; C79.31 Secondary malignant neoplasm of brain; N39.0 Urinary tract infection, site not specified; Z51.5 Encounter for palliative care; C61 Malignant neoplasm of prostate; E11.9 Type 2 diabetes mellitus without complications; D69.6 Thrombocytopenia, unspecified; Z95.1 Presence of aortocoronary bypass graft; E78.5 Hyperlipidemia, unspecified; M10.9 Gout, unspecified; Z88.1 Allergy status to other antibiotic agents; Z88.2 Allergy status to sulfonamides; N40.0 Benign prostatic hyperplasia without lower urinary tract symptoms
CPT/HCPCS: 2NAP; 36592; 93005; 93010; J0131